=== PATIENT | male | born 1970 | race Caucasian/White ===

== ENCOUNTER 2021-08-11 13:04 | Outpatient (RCR) | payer BC, SELFPAY ==
[2021-08-11 16:01] VITALS: BP 130/75; PULSE 110; RESP 20; TEMP 38.3; O2SAT 96
[2021-08-11] MEDS: diphenhydrAMINE HCl CAP 25 MG CAPSULE PO (16:07)
[2021-08-11] MEDS: ACETAMINOPHEN 325 MG TABLET 650 MG PO (16:07)
[2021-08-11] MEDS: FAMOTIDINE 20 MG TABLET PO (16:07)
[2021-08-11 17:10] VITALS: BP 124/80; PULSE 92; O2SAT 95
--- NOTE | 2021-08-12 09:02 | PC.NURSE ---
Called Mr Myers and had to leave a message for him to call us back.
--- NOTE | 2021-08-12 10:03 | PC.NURSE ---
Patient states he is feeling better after his monoclonal antibody.
== END 2021-08-11 17:00 ==
LOC: AMCINF 13:04
PROVIDERS: PCP Physician Assistant Medical; Visit Provider Internal Medicine Hematology & Oncology
DX: U07.1 COVID-19 (principal)
CPT/HCPCS: A9270; M0243; Q0244